=== PATIENT | female | born 1985 | race Two or more races ===

== ENCOUNTER 2018-06-20 21:01 | Emergency (ER) | payer BC ==
[~2018-06-20] VITALS: Ht 165.1 cm; Wt 54.4 kg
[~2018-06-20 21:01] MED LIST: CLON0.5T PO; LEVO1TAB8 PO
--- NOTE | 2018-06-20 21:17 | NUR ---
Dr. Lord at bedside for MSE.
[2018-06-20] MEDS ORDERED: TDAP DIPH,PERTUSS,TET VAC/PF 0.5 ML DISP.SYRIN IM ONE (21:23)
[2018-06-20] MEDS ORDERED: NEOMY/BACITRA/POLYMYXIN B OINT UD PACKET TP ONE (21:23)
[2018-06-20] MEDS: TDAP DIPH,PERTUSS,TET VAC/PF 0.5 ML DISP.SYRIN IM ONE (21:27)
[2018-06-20] MEDS: NEOMY/BACITRA/POLYMYXIN B OINT UD PACKET TP ONE (21:27)
--- NOTE | 2018-06-20 21:30 | NUR ---
Patient discharged to home in stable conditon. Written and verbal after care instructions given. Patient verbalizes understanding of instructions. Patient ambulated out of ER with steady gait, no acute signs of distress, VSS, all belongings taken.
[2018-06-20 21:32] VITALS: BP 111/87
== END 2018-06-20 21:33 | disposition home or self-care (01) ==
LOC: ER 21:01
DX: S61.452A Open bite of left hand, initial encounter (principal); S61.412A Laceration without foreign body of left hand, initial encounter; Z79.899 Other long term (current) drug therapy; W54.0XXA Bitten by dog, initial encounter; Y93.89 Activity, other specified; Y92.89 Other specified places as the place of occurrence of the external cause; Y99.8 Other external cause status
CPT/HCPCS: 90715; A4663